=== PATIENT | male | born 1965 | race Caucasian/White ===

== ENCOUNTER 2017-10-01 18:00 | Emergency (ER) | payer OTHER ==
[~2017-10-01 18:00] MED LIST: AUG875 PO; LOR5/325 PO; LOR75 PO; NO ROUTINE MEDS
[2017-10-01 18:22] VITALS: BP 140/96
--- NOTE | 2017-10-01 18:33 | ER Report ---
History and Physical Time Seen By MD: 18:33 Hx. of Stated Complaint: PT WAS MOWING LAWN WHEN FELT SOMETHING HIT HIM IN THE FACE, HAS WHAT LOOKS LIKE A PIECE OF THREAD STICKING OUT THE TOP OF HIS LEFT CHEEK WITH A POSSIBLE ENTRANCE WOUND ABOUT 1 CM BELOW, SMALL LAC TO FACE BELOW THAT HPI/ROS CHIEF COMPLAINT: Facial foreign body HISTORY OF PRESENT ILLNESS: Patient is a 52-year-old male here with complaints of left sided facial foreign body. Patient was mowing the lawn when he experienced a piercing sensation of the face which he suspected was a copper wire. There is a small thread protruding from the skin on evaluation. Patient denies other injury. REVIEW OF SYSTEMS: Constitutional: No fever, no chills. Eyes: No discharge. ENT: No sore throat. Face: + left facial laceration with exposed wire protruding from skin Skin: + small superficial laceration of left face Neurological: No headache. Allergies: Coded Allergies: No Known Drug Allergies (Verified , 08/14/16) Home Meds No Active Prescriptions or Reported Meds Hx Smoking: No Hx Substance Use Disorder: No Hx Alcohol Use: No Constitutional Vital Sign - Last 24 Hours 10/01/17 18:22 Temp 97.8 Pulse 67 Resp 16 B/P (MAP) 140/96 Pulse Ox 95 Physical Exam General Appearance: The patient is alert, has no immediate need for airway protection and no signs of toxicity. NAD Eyes: Pupils equal and round no pallor or injection. ENT, Mouth: Mucous membranes are moist Face: + left facial laceration to left cheek with protruding wire Neurological: No focal deficits Skin: Warm and dry, no rashes, + small laceration to left cheek Musculoskeletal: Neck is supple non tender. Extremities are nontender, nonswollen and have full range of motion. DIFFERENTIAL DIAGNOSIS: After history and physical exam differential diagnosis was considered for foreign body, laceration, puncture wound Medical Decision Making EKG/Imaging Imaging Examination: FACIAL BONES < 3 VIEW Comparison: Earlier the same day. History: post FB removal Findings: The metallic foreign body has been removed in its entirety with no remaining radiopaque foreign body identified. IMPRESSION: No radiopaque foreign body. Examination: FACIAL BONES < 3 VIEW Comparison: None. History: facial foreign body Findings: Approximately 2.2 cm metallic wire within the deep soft tissues just inferior to the orbit and along the left maxillary sinus anterior wall. No other radiopaque foreign body is identified. Visualized paranasal sinuses are clear. IMPRESSION: Approximately 2.2 cm metallic wire within the deep soft tissues adjacent to the left maxillary sinus anterior wall. ED Course/Re-evaluation ED Course Patient is a 52-year-old male who has a wire foreign body in his left cheek while he was mowing his lawn. He had a superficial laceration below the site. X- ray showed linear copper wire foreign body. Lidocaine was administered to anesthetize the tract. Wire was removed successfully and x-ray confirmed no retained foreign body. Patient was well-appearing at time of discharge. Decision to Disposition Date: Oct 01, 2017 Decision to Disposition Time: 20:30 Depart Departure Latest Vital Signs Vital Signs Date Time Temp Pulse Resp B/P (MAP) Pulse Ox O2 Delivery O2 Flow Rate FiO2 10/01/17 18:22 97.8 67 16 140/96 95 Impression: Primary Impression: Facial laceration Condition: Improved Disposition: HOME OR SELF-CARE Referrals: [facility] (PCP) New Scripts No Active Prescriptions or Reported Meds Patient Instructions: Facial Laceration (ED) Additional Instructions: Please follow up with your family doctor in one week. Please return promptly if he developed swelling, rash, fevers, worsening pain. ELVIRA HAUSER DO Oct 01, 2017 18:33
[2017-10-01] MEDS ORDERED: OCTYL CYANOACRYLATE 1 APP APPL TP ONE (19:55)
--- NOTE | 2017-10-01 20:17 | RADIOLOGY IMAGING REPORT ---
[place]AC[place] [facility] [place] NAME: Solo Pan : 1965 MR: [id number] V: [id number] EXAM DATE: ORDERING PHYSICIAN: ELVIRA HAUSER TECHNOLOGIST: Location: [facility] Patient: Solo Pan : 1965 Visit/Account:[id number] Date of Sevice: 10/01/2017 Examination: FACIAL BONES < 3 VIEW Comparison: None. History: facial foreign body Findings: Approximately 2.2 cm metallic wire within the deep soft tissues just inferior to the orbit and along the left maxillary sinus anterior wall. No other radiopaque foreign body is identified. Vis ualized paranasal sinuses are clear. IMPRESSION: Approximately 2.2 cm metallic wire within the deep soft tissues adjacent to the left maxillary sinus anterior wall. Report Dictated By: Solo Grijalva MD at 10/01/2017 8:10 PM Report E-Signed By: Solo Grijalva MD at 10/01/2017 8:13 PM WSN:[id number]
--- NOTE | 2017-10-01 20:34 | RADIOLOGY IMAGING REPORT ---
FACILITY: [facility] PATIENT NAME: Solo Pan : 1965 MR: [id number] V: [id number] EXAM DATE: ORDERING PHYSICIAN: ELVIRA HAUSER TECHNOLOGIST: Location: [facility] Patient: Solo Pan : 1965 Visit/Account:[id number] Date of Sevice: 10/01/2017 Examination: FACIAL BONES < 3 VIEW Comparison: Earlier the same day. History: post FB removal Findings: The metallic foreign body has been removed in its entirety with no remaining radiopaque for eign body identified. IMPRESSION: No radiopaque foreign body. Report Dictated By: Solo Grijalva MD at 10/01/2017 8:29 PM Report E-Signed By: Solo Grijalva MD at 10/01/2017 8:31 PM WSN:[id number]
== END 2017-10-01 20:29 | disposition home or self-care (01) ==
LOC: ER 18:22
DX: S01.422A Laceration with foreign body of left cheek and temporomandibular area, initial encounter (principal)
CPT/HCPCS: 70140; 99283